=== PATIENT | female | born 1970 | race Caucasian/White ===

== ENCOUNTER → 2020-08-02 | Outpatient (CLI) | payer BC, MEDICAID ==
[~2020-08-02] MED LIST: ASPI-999 PO; CLOP75TA69 PO; LEVO50TA6 PO; LISI10TA2 PO; METO-351 PO; MTP25TSR PO; NORG1TAB15 PO; OMEG500C3 PO; SIMV40TA25 PO
--- NOTE | 2020-08-02 11:39 | Diagnostic Imaging Report ---
Indication: Dyspnea and weight gain PA and lateral views of the chest are obtained. FINDINGS: Heart size and pulmonary vascularity are within normal limits, and the lungs are clear, bilaterally. IMPRESSION: Unremarkable chest. Dictated by: Dictated on workstation # [id number]
== END ==
LOC: RAD 11:10
PROVIDERS: ATTEND Nurse Practitioner Family
DX: R06.00 Dyspnea, unspecified (principal); R63.5 Abnormal weight gain
CPT/HCPCS: 71046

== ENCOUNTER → 2020-08-14 | Outpatient (CLI) | payer BC | LOC: CARD 11:30 | PROVIDERS: ATTEND Family Medicine | DX: R06.00 Dyspnea, unspecified (principal); R60.0 Localized edema; I10 Essential (primary) hypertension; R79.89 Other specified abnormal findings of blood chemistry | CPT/HCPCS: 93306 ==

== ENCOUNTER → 2022-01-11 | Outpatient (CLI) | payer BC ==
[~2022-01-11] MED LIST changes: -LISI10TA2 PO; +LISI10TA25 PO
--- NOTE | 2022-01-14 13:36 | Diagnostic Imaging Report ---
INDICATION: Routine screening. COMPARISON: 12/24/2017. TECHNIQUE: 2D and 3D bilateral screening mammography was performed with CAD. FINDINGS: Bilateral subpectoral breast implants are noted. The implant contours are smooth. There is no evidence of extracapsular rupture. There are scattered fibroglandular densities in both breasts. A benign circumscribed nodule in the outer right breast appears stable. No spiculated mass or malignant-appearing microcalcifications are seen. The axillae are unremarkable. IMPRESSION: No mammographic features suspicious for malignancy are identified. ACR BI-RADS Category 2: Benign findings. Result letter will be mailed to the patient. Note: At least 10% of breast cancer is not imaged by mammography. Dictated by: Dictated on workstation # [id number]
== END ==
LOC: RAD 13:00
PROVIDERS: ATTEND Family Medicine
DX: Z12.31 Encounter for screening mammogram for malignant neoplasm of breast (principal)
CPT/HCPCS: 77063; 77067

== ENCOUNTER 2022-08-17 14:36 | Emergency (ER) | payer BC ==
[~2022-08-17 14:36] MED LIST changes: +CLOP-31 PO; -CLOP75TA69 PO
[2022-08-17] MEDS ORDERED: LIDOCAINE 1% INJ 20 ML VIAL INJ ONE (15:00)
--- NOTE | 2022-08-17 15:26 | ED Head Injury ---
General Chief Complaint: Laceration Stated Complaint: HEAD LAC Nursing Triage Note: PT ARRIVAL TO ER VIA PRIVATE VEHICLE FROM [facility]. PATIENT COMPLAINT OF LEFT EYEBROW LACERATION. PT WAS AT HOME AND WOODEN FARM DOOR SWUNG OPEN AND HIT HER IN THE FACE. NO LOSS OF CONSCIOUSNESS. PATIENT HAS NO ACTIVE BLEEDING AT THIS TIME. PT SENT HERE FROM [facility] BECAUSE THEY TOLD HER "YOU WILL HAVE TO HAVE A CT SCAN". PATIENT RATES PAIN AT A 5/10 AND DESCRIBES IT AN ACHE. Source: patient Exam Limitations: no limitations (MIGDALIA SELLERS APRN) History of Present Illness Date Seen by Provider: Aug 17, 2022 Time Seen by Provider: 14:47 Initial Comments 51-year-old female presents with laceration above left eye. Reports an indoor wooden door hit her in the head at home. Denies loss of consciousness, headache, dizziness, change in vision. Does not take blood thinners. Occurred: just prior to arrival (MIGDALIA SELLERS APRN) Allergies and Home Medications Allergies Coded Allergies: diazepam (Unverified Adverse Reaction, Intermediate, anxiety, 05/19/16) "made me climb the chand." Patient Home Medication List Home Medication List Reviewed: Yes (MIGDALIA SELLERS APRN) Levothyroxine Sodium (Levothyroxine Sodium) 50 Mcg Tablet, 50 MCG PO DAILY, (Reported) Entered as Reported by: TRINA AVILA on 05/19/162125 Lisinopril (Lisinopril) 10 Mg Tablet, 10 MG PO DAILY Prescribed by: CESILIA PRATER on 05/19/162343 Metoprolol Succinate (Toprol Xl) 25 Mg Tab.er.24h, 25 MG PO DAILY Prescribed by: CESILIA PRATER on 05/19/16 234 Norgestimate-Ethinyl Estradiol (Tri-Sprintec Tablet) 1 Each Tablet, 1 TAB PO DAILY, (Reported) Entered as Reported by: TRINA AVILA on 05/19/162125 Review of Systems Review of Systems Constitutional: no symptoms reported (MIGDALIA SELLERS APRN) Past Uypbvoa-Lryxgv-Qrwmff Hx Patient Social History Tobacco Use?: No Use of E-Cig and/or Vaping dev: No Substance use?: No Alcohol Use?: Yes Alcohol type: Beer, Hard Liquor, Wine Alcohol Frequency: Rarely Pt feels they are or have been: No (MIGDALIA SELLERS APRN) Immunizations Up To Date Tetanus Booster (TDap): More than 5yrs Influenza Vaccine Up-to-Date: No; Not Current (MIGDALIA SELLERS APRN) Seasonal Allergies Seasonal Allergies: Yes (MIGDALIA SELLERS APRN) Past Medical History Reproductive Disorders: No Sexually Transmitted Disease: No (MIGDALIA SELLERS APRN) Family Medical History Hypertension (MIGDALIA SELLERS APRN) Physical Exam Vital Signs Vital Signs - First Documented 08/17/22 14:40 Temp 36.3 Pulse 91 Resp 16 B/P (MAP) 174/111 (132) Pulse Ox 98 O2 Delivery Room Air (SCOT ALEXANDER APRN) Vital Signs Capillary Refill : Less Than 3 Seconds (MIGDALIA SELLERS APRN) Height, Weight, BMI Height: 5'1" Weight: 135lbs. oz. 61.664523et; BMI Method:Stated General Appearance: WD/WN, no apparent distress Neck: supple, normal inspection Extremities: normal range of motion, normal inspection Psychiatric: alert, oriented x 3 Skin: normal color, warm/dry, other (C shaped laceration upon left eye vertical through eyebrow) (MIGDALIA SELLERS APRN) Procedures/Interventions Wound Location: Face Other Wound Location left eyebrow Wound Length (cm): 4 Wound's Depth, Shape: linear, sub Q Wound Explored: clean Irrigated w/ Saline (ccs): 10 Anesthesia: 1% Lidocaine Volume Anesthetic (ccs): 2 Suture: Prolene Suture Size: 5-0 Number of Sutures: 7 Layer Closure?: 1 Progress Wound thoroughly explored. No foreign bodies. The wound was irrigated with 10cc saline flush. 5-0 Prolene used for closure with 7 interrupted sutures. A dressing was applied to the area and post-procedure care was explained. Return precautions given. The patient tolerated the procedure well without complicatio ns. Follow-up visit set for suture removal and evaluation of the laceration. (SCOT ALEXANDER APRN) Progress/Results/Core Measures Results/Orders Medications Given in ED Current Medications Medications Dose Ordered Sig/Royce Route Start Time Stop Time Status Last Admin Dose Admin Lidocaine HCl 20 ml ONCE ONCE INJ 08/17/22 15:00 08/17/22 15:01 DC 08/17/22 14:58 20 ML (SCOT [employer]LEX[employer]ER [employer]) Vital Signs/I&O 08/17/22 08/17/22 14:40 15:31 Temp 36.3 36.3 Pulse 91 91 Resp 16 16 B/P (MAP) 174/111 (132) 174/111 Pulse Ox 98 98 O2 Delivery Room Air Room Air ([employer]ER [employer]) Blood Pressure Mean: 132 Progress Progress Note : Time: 15:20 Progress Note Patient seen and evaluated, resting on bed, no acute distress. Laceration repaired with 7 5.0 Prolene sutures. Neosporin and nonadherent bandage applied. Risk stratification for head CT scan completed with [place] CT head score, she did not meet any criteria. (MIGDALIA SELLERS APRN) Departure Impression Primary Impression: Laceration Additional Impression: Head injury Qualified Codes: S09.90XA - Unspecified injury of head, initial encounter Disposition: 01 HOME, SELF-CARE Condition: Stable Departure-Patient Inst. Decision time for Depature: 15:26 (MIGDALIA SELLERS APRN) Referrals: JOHNY KING MD (PCP/Family) Primary Care Physician Patient Instructions: Laceration Repair With Stitches ED Add. Discharge Instructions: Plan: 1. Discharge home. 2. Observe the patient for 24-48 hours. Contact your family physician, or return to the ER immediately if any of the following are observed. -Repeated vomiting -Confusion, delirium or disorientation -Blurred vision or double vision -A difference in pupil size comparing left to right (black part of the eye) -Twitching or convulsions -Clear or blood fluid from the nose or ears -Persistent headaches or the worst headache of your life -Weakness of face, arm or leg muscles -Difficulty in rousing patient (the patient should be awakened every 2 hours during the first night) 3. Take nothing stronger than Tylenol or Ibuprofen for pain. Take per package directions. 4. Avoid alcohol intake. 5. Return to ER for any other new, concerning, or worsening symptoms. WOUND CARE 6. Keep wound clean and dry 7. Remove bandage after 24 hours, then re-bandage after cleaning with mild soap and water. Wash wound daily. You can leave open to air after a few days. 8. Make apply ice pack for swelling. 9. If you are working in dirty area, cover with dry bandage. 10. Despite the best care, any wound can become infected. Watch for increase in redness, swelling, increase in pain, drainage, red streaks or fever and report any of these to your physician or return to the emergency room. 11. Return to the ER in 7-10 days to have your (#7) sutures removed. All discharge instructions reviewed with patient and/or family. Voiced understanding. MIGDALIA SELLERS APRN Aug 17, 2022 15:26 [employer] Aug 17, 2022 15:28
[2022-08-17 15:31] VITALS: BP 174/111
== END 2022-08-17 15:35 | disposition home or self-care (01) ==
LOC: EDUNIT# 14:36 → ER 14:37
DX: S09.90XA Unspecified injury of head, initial encounter (principal); S01.112A Laceration without foreign body of left eyelid and periocular area, initial encounter; Z28.310 Unvaccinated for COVID-19; W22.8XXA Striking against or struck by other objects, initial encounter; Y92.009 Unspecified place in unspecified non-institutional (private) residence as the place of occurrence of the external cause
CPT/HCPCS: 99284

== ENCOUNTER 2022-08-25 14:31 | Emergency (ER) | payer BC ==
[~2022-08-25] VITALS: Ht 152 cm; Wt 75.0 kg
[2022-08-25 15:00] VITALS: BP 153/99
== END 2022-08-25 15:00 | disposition home or self-care (01) ==
LOC: EDUNIT# 14:31 → ER 14:33
DX: S01.81XD Laceration without foreign body of other part of head, subsequent encounter (principal)